=== PATIENT | female | born 1990 | race Caucasian/White ===

== ENCOUNTER 2021-11-17 04:40 | Emergency (ER) | payer MEDICAID ==
[~2021-11-17] VITALS: Ht 165.1 cm; Wt 71.2 kg
[2021-11-17 05:34] VITALS: BP 124/57
--- NOTE | 2021-11-17 05:47 | NUR ---
PT TO [facility], ER/MD DR YAZMIN COLON PT, UA DONE, HCG NEG
[2021-11-17 05:55] LABS: APPEARANCE,URINE CLEAR (CLEAR); BILIRUBIN,URINE NEGATIVE (NEGATIVE); BLOOD, URINE NEGATIVE (NEGATIVE); COLOR,URINE YELLOW (YELLOW); LEUKOCYTE ESTERASE ,URINE NEGATIVE (NEGATIVE); NITRITE, URINE NEGATIVE (NEGATIVE); UGLUCOSE NEGATIVE (NEGATIVE)
--- NOTE | 2021-11-17 05:55 | NUR ---
WALKED URINE SAMPLE TO LAB AND HANDED IT TO LAB PERSONJULIO CÉSAR
--- NOTE | 2021-11-17 06:40 | NUR ---
Dr. Lloyd examining patient.
[2021-11-17] MEDS ORDERED: FLUCONAZOLE 100 MG TAB PO ONE (06:50)
[2021-11-17] MEDS ORDERED: METR-435 PO (06:53)
[2021-11-17] MEDS ORDERED: IBUP-2213 PO (06:54)
[2021-11-17 07:41] VITALS: BP 122/52
--- NOTE | 2021-11-17 07:46 | NUR ---
Patient discharged with v/s stable. Written and verbal after care instructions given and explained. Patient alert, oriented and verbalized understanding of instructions. Ambulatory with steady gait. All questions addressed prior to discharge. ID band removed. Patient advised to follow up with PMD. Rx of IBU, METRONIDAZOLE given. Patient educated on indication of medication including possible reaction and side effects. Opportunity to ask questions provided and answered.
== END 2021-11-17 07:46 | disposition home or self-care (01) ==
LOC: MED 04:40
DX: N89.8 Other specified noninflammatory disorders of vagina (principal); Z79.899 Other long term (current) drug therapy
CPT/HCPCS: 81003; 81025; 87205; 87210; 99283